=== PATIENT | male | born 1950 | race Caucasian/White ===

== ENCOUNTER → 2016-10-28 | Outpatient (CLI) | payer BC ==
[~2016-10-28] MED LIST: CHOL100010 PO; LEVO25TA5 PO; MULT-506 PO; OMEG10007 PO; PANT40TA PO; VITAMIN E PO
--- NOTE | 2016-10-28 12:50 | DIAGNOSTIC IMAGING REPORT ---
Left CALF ULTRASOUND CLINICAL HISTORY: Left CALF PAIN COMPARISON STUDY: None. FINDINGS: There are patchy echogenic areas within the muscles of the left calf. In addition, within the left calf there are are 2 adjacent round hypoechoic foci which appear to be intramuscular. These measure total size of 2.1 x 0.7 cm. These do not demonstrate color flow. IMPRESSION: Patchy echogenic areas within the muscles of the left calf with 2 adjacent round hypoechoic intramuscular foci which measure 2.1 x 0.7 cm. These findings favor intramuscular injury with a small intramuscular hematoma. However, an infectious process or small abscess also have a similar appearance. Follow-up ultrasound is recommended to ensure resolution of these findings. Electronically signed by: Fernando Hoff M.D. 10/28/2016 12:48 PM
== END | disposition home or self-care (01) ==
LOC: C.ULTR 12:13
PROVIDERS: ATTEND Internal Medicine Geriatric Medicine
DX: M79.669 Pain in unspecified lower leg (principal); R93.7 Abnormal findings on diagnostic imaging of other parts of musculoskeletal system

== ENCOUNTER → 2017-05-03 | Day surgery (SDC) | payer OTHER ==
[2017-04-23 12:17] VITALS: Ht 177.8 cm; Wt 72.7 kg
[~2017-05-03] VITALS: Ht 177.8 cm; Wt 72.7 kg
[~2017-05-03] MED LIST changes: +LIDOCAINE HCL 2% 2 ML VIAL (20MG/ML) ONE; +PROPOFOL IV EMULSION 10 MG/ML 20 ML VIAL IV ONE; +SODIUM CHLORIDE 0.9% 500ML 500 ML IV ONE; -VITAMIN E PO
--- NOTE | 2017-05-03 09:39 | Endo History and Physical ---
History & Physical Date of Service: May 03, 2017. Chief Complaint: screening Referring Physician: Dr. Wiliam Vuong History of Present Illness 67 yo CM who presents for screening colonoscopy. Past Medical History Arthritis, Male Genitourinary Prob. Past Surgical History Hx Cardiac Surgery: No Hx Internal Defibrillator: No Hx Pacemaker: No Hx Abdominal Surgery: No Hx Post-Op Nausea and Vomiting: No Hx Cancer Surgery: No Hx Thoracic Surgery: No Hx Orthopedic: Yes (LAMINECTOMY L4-L5 AND THEN HAD REVISION MICROSURGERY) Hx Urinary Tract Surgery: Yes (CYSTOSCOPY WITH TURP) Family History None Social History Smoking Status: Never Smoker Hx Substance Use: No Hx Alcohol Use: Yes (RARELY) Allergies Coded Allergies: No Known Allergies (Verified , 04/23/17) Current Medications Reported Home Medications Medications Dose Route/Sig Max Daily Dose Days Date Category Protonix (Pantoprazole Sodium) 40 Mg Tab 40 Mg PO QAM 04/23/17 Reported Vitamin D (Cholecalciferol) 1,000 Inter.unit Tab 1,000 Inter.unit PO QPM 07/09/16 Reported [place]-3 (Fish Oil) 1 Ea Cap 1 Cap PO QAM 07/09/16 Reported Multivitamin (Multivitamins) Tab 0.5 Tab PO BID 07/09/16 Reported Levothyroxine Sodium 25 Mcg Tab 1 Tab PO AFTERNOON 03/02/16 Reported Vital Signs Weight (Kilograms): 72.73 Height (Feet): 5 Height (Inches): 10. Date Time Temp Pulse Resp B/P (MAP) Pulse Ox O2 Delivery O2 Flow Rate FiO2 05/03/17 09:09 36.4 54 16 160/97 (118) 99 Room Air Physical Exam General Appearance: WD/WN, no apparent distress Respiratory/Chest: Auscultation: breath sounds normal Cardiovascular: Heart Auscultation: RRR Abdomen: Bowel Sounds: normal Inspection & Palpation: soft, non-distended, no tenderness, guarding & rebound Assessment and Plan Assessment: 67 yo CM who presents for screening colonoscopy. Plan: Proceed with colonoscopy.
--- NOTE | 2017-05-03 10:10 | GI REPORT ---
Procedure Date: 05/03/2017 9:29 AM Procedure: Colonoscopy Indications: Screening for colorectal malignant neoplasm Medicines: Monitored Anesthesia Care Complications: No immediate complications. Estimated Blood Loss: Estimated blood loss: none. Procedure: Pre-Anesthesia Assessment: - Prior to the procedure, a History and Physical was performed, and patient medications and allergies were reviewed. The patient's tolerance of previous anesthesia was also reviewed. The risks and benefits of the procedure and the sedation options and risks were discussed with the patient. All questions were answered, and informed consent was obtained. Prior Anticoagulants: The patient has taken no previous anticoagulant or antiplatelet agents. ASA Grade Assessment: II - A patient with mild systemic disease. After reviewing the risks and benefits, the patient was deemed in satisfactory condition to undergo the procedure. After I obtained informed consent, the scope was passed under direct vision. Throughout the procedure, the patient's blood pressure, pulse, and oxygen saturations were monitored continuously. The Scope was introduced through the anus and advanced to the terminal ileum. The colonoscopy was performed without difficulty. The patient tolerated the procedure well. The quality of the bowel preparation was good. The terminal ileum, ileocecal valve, appendiceal orifice, and rectum were photographed. Findings: Non-bleeding internal hemorrhoids were found during retroflexion. The hemorrhoids were small. Impression: - Non-bleeding internal hemorrhoids. - No specimens collected. Recommendation: - Resume previous diet. - Continue present medications. - Repeat colonoscopy in 10 years for surveillance. - Return to primary care physician as previously scheduled. Good Arvizu DO 05/03/2017 10:10:30 AM This report has been signed electronically. Note Initiated On: 05/03/2017 9:29 AM I attest to the content of the Intraoperative Record and orders documented therein, exceptions below
--- NOTE | 2017-05-03 10:16 | Discharge Instructions ---
Endoscopy Patient Instructions Date / Procedure(s) Performed May 03, 2017. Colonoscopy Allergy Information Coded Allergies: No Known Allergies (Verified , 04/23/17) Discharge Date / Findings May 03, 2017. Internal hemorrhoids Medication Instructions OK to resume all medications today as prescribed Reported Home Medications Medications Dose Route/Sig Max Daily Dose Days Date Category Protonix (Pantoprazole Sodium) 40 Mg Tab 40 Mg PO QAM 04/23/17 Reported Vitamin D (Cholecalciferol) 1,000 Inter.unit Tab 1,000 Inter.unit PO QPM 07/09/16 Reported [place]-3 (Fish Oil) 1 Ea Cap 1 Cap PO QAM 07/09/16 Reported Multivitamin (Multivitamins) Tab 0.5 Tab PO BID 07/09/16 Reported Levothyroxine Sodium 25 Mcg Tab 1 Tab PO AFTERNOON 03/02/16 Reported Provider Instructions Activity Restrictions - No exercising or heavy lifting for 24 hours. - Do not drink alcohol the day of the procedure. - Do not drive a car or operate machinery until the day after the procedure. - Do not make any important decisions or sign important papers in 24 hours after the procedure. Following Day: - Return to full activity which may include returning to work/school. Diet Start your diet with liquids and light foods (jello, soup, juice, toast). Then eat your usual diet if not nauseated. Treatment For Common After Affects For mild abdominal pain, bloating, or excessive gas: - Rest - Eat lightly - Lie on right side Follow-Up Information Follow-up with Dr. Wiliam Vuong as scheduled Anesthesia Information What You Should Know You have had a procedure that required some medicine to reduce anxiety and discomfort. This treatment is called moderate sedation. After receiving the treatment, you may be sleepy, but you will be able to breathe on your own. The effects of the treatment may last for several hours. Follow these instructions along with Activity/Diet recommendations noted above: * Do NOT do anything where dizziness or clumsiness would be dangerous. * Rest quietly at home today, then you can be up and about tomorrow. * Have a responsible person stay with you the rest of today. * You may have had an I.V. today. If so, you may take the dressing off later today. Recommendations Call your doctor if: * Trouble breathing * Continuous vomiting for more than 24 hours * Temperature above 101 degrees * Severe abdominal pain or bloating * Pain not relieved by pain medicine ordered * There is increased drainage or redness from any incision * A large amount of rectal bleeding greater than 2-3 tablespoons. (If you had a polyp/s removed or have hemorrhoids, a small amount of blood - from the rectum is to be expected.) * You have any unanswered questions or concerns. IN THE EVENT OF A SERIOUS EMERGENCY, GO TO THE NEAREST EMERGENCY ROOM Your discharge instructions were prepared by provider Good Arvizu. Patient Instructions Signature Page Garcia Leonardo Patient (or Guardian) Signature/Date: I have read and understand the instructions given to me by my caregivers. Caregiver/RN/Doctor Signature/Date: The above-named patient and/or guardian has received patient instructions on this date. + Original Patient Signature Page (only) stays with chart. Please make copy for patient.
--- NOTE | 2017-05-03 10:34 | Anesthesiology Progress Note ---
Anesthesia Post Op Note Date & Time May 03, 2017 at 10:34 Vital Signs Pain Intensity: 0 Vital Signs Past 12 Hours Date Time Temp Pulse Resp B/P (MAP) Pulse Ox O2 Delivery O2 Flow Rate FiO2 05/03/17 10:21 56 20 120/80 (93) 96 Room Air 05/03/17 10:06 52 20 105/71 (82) 98 Room Air 05/03/17 09:09 36.4 54 16 160/97 (118) 99 Room Air Notes Mental Status: alert / awake / arousable, participated in evaluation Pt Amnestic to Procedure: Yes Nausea / Vomiting: adequately controlled Pain: adequately controlled Airway Patency, RR, SpO2: stable & adequate BP & HR: stable & adequate Hydration State: stable & adequate Anesthetic Complications: no major complications apparent
[2017-05-03 10:36] VITALS: BP 138/89; PULSE 60; O2SAT 99
== END | disposition home or self-care (01) ==
LOC: C.GI 08:35
PROVIDERS: ATTEND Internal Medicine
DX: Z12.11 Encounter for screening for malignant neoplasm of colon (principal); K64.8 Other hemorrhoids; M19.90 Unspecified osteoarthritis, unspecified site

== ENCOUNTER → 2017-09-09 | Outpatient (CLI) | payer OTHER ==
[~2017-09-09] MED LIST changes: -LIDOCAINE HCL 2% 2 ML VIAL (20MG/ML) ONE; -PROPOFOL IV EMULSION 10 MG/ML 20 ML VIAL IV ONE; -SODIUM CHLORIDE 0.9% 500ML 500 ML IV ONE
[2017-09-09 10:56] LABS: BASO % 1.2 %; BASO ABS # 0.06 K/uL (0-0.2); COMPLETE YES; EOS % 9.2 %; HEMATOCRIT 47.3 % (42-52); IG% 0.2 %; LYMPH % 24.5 %; LYMPH ABS # 1.25 K/uL (1.2-3.4); MEAN CELL VOLUME 93.8 fL (80-100); MEAN CORPUSCULAR HEMOGLOBIN 31.7 pg (25-34); MEAN CORPUSCULAR HGB CONC 33.8 g/dl (32-36); MEAN PLATELET VOLUME 10.2 fL (7.4-10.4); MONO % 10.6 %; NEUT % 54.3 %; PLATELET COUNT 219 K/uL (130-400); RED BLOOD COUNT 5.04 M/uL (4.7-6.1)
[2017-09-09 11:05] LABS: ALT/SGPT 42 U/L (12-78); BLOOD UREA NITROGEN 11 mg/dl (7-18); BUN/CREATININE RATIO 10.9 (10-20); CALCIUM 8.8 mg/dl (8.5-10.1); CARBON DIOXIDE 31 mmol/L (21-32); CHLORIDE 102 mmol/L (98-107); CREATININE 1.03 mg/dl (0.60-1.40); GLUCOSE 91 mg/dl (70-99); SODIUM 138 mmol/L (136-145)
[2017-09-09 11:12] LABS: ALB/GLOB RATIO 0.8 (0.9-2); ALKALINE PHOSPHATASE 63 U/L (45-117); AST/SGOT 30 U/L (15-37); CHOLESTEROL 186 mg/dl (0-200); CHOLESTEROL/HDL RATIO 3.4; HDL CHOLESTEROL 55 mg/dl; LDL CHOLESTEROL CALCULATED 111 mg/dl; PROSTATE SPECIFIC ANTIGEN 0.846 ng/ml (0.000-4.000); TRIGLYCERIDES 98 mg/dl (0-150); VERY LOW DENSITY LIPOPROT CALC 20 mg/dl
== END | disposition home or self-care (01) ==
LOC: C.LABBC 07:29
PROVIDERS: ATTEND Internal Medicine
DX: N40.0 Benign prostatic hyperplasia without lower urinary tract symptoms (principal); E03.9 Hypothyroidism, unspecified; D50.0 Iron deficiency anemia secondary to blood loss (chronic); Z11.59 Encounter for screening for other viral diseases; K22.70 Barrett's esophagus without dysplasia; K44.9 Diaphragmatic hernia without obstruction or gangrene

== ENCOUNTER → 2017-10-07 | Outpatient (CLI) | payer OTHER ==
[~2017-10-07] MED LIST changes: +GADAVIST IV PRN
--- NOTE | 2017-10-07 09:29 | DIAGNOSTIC IMAGING REPORT ---
BRAIN COMBO FOR IAC CLINICAL HISTORY: LEFT SNHO *W/IAC'S* mental status change. Hearing loss. TECHNIQUE: MRI multi axial acquisition. Pre and post gadolinium enhanced scans. COMPARISON STUDY: None FINDINGS: Diffusion images are negative for an acute ischemic event. Several small foci of increased signal within the periventricular deep white matter regions consistent with a component of chronic small vessel change of aging. Ventricular system is midline. Internal auditory canals are symmetric. Postcontrast images are considered negative for an enhancing lesion. Sella and parasellar regions are unremarkable. Internal auditory canals are symmetric. There is no abnormal postcontrast enhancement of the 7th or 8th nerves. IMPRESSION: Normal study for age. note is made of mild scattered mucosal thickening of the sinuses The above report was generated using voice recognition software. It may contain grammatical, syntax or spelling errors. Electronically signed by: Glynn Magana M.D. 10/07/2017 9:28 AM Dictated Date/Time: 10/07/2017 9:25 AM
== END | disposition home or self-care (01) ==
LOC: C.MRIBC 07:47
PROVIDERS: ATTEND Physician Assistant
DX: H90.42 Sensorineural hearing loss, unilateral, left ear, with unrestricted hearing on the contralateral side (principal)

== ENCOUNTER → 2018-03-10 | Outpatient (CLI) | payer OTHER ==
[~2018-03-10] MED LIST changes: -GADAVIST IV PRN
--- NOTE | 2018-03-10 18:40 | DIAGNOSTIC IMAGING REPORT ---
LEFT KNEE 3 VIEWS CLINICAL HISTORY: Left knee strain. FINDINGS: AP, lateral, and sunrise views of the left knee are obtained. No prior studies are available for comparison at the time of dictation. The skeletal structures are well mineralized. No fracture is identified. There is mild to moderate tricompartmental degenerative joint space narrowing, greatest at the patellofemoral articulation. Chondrocalcinosis is noted in the medial and lateral compartments. A small joint effusion is identified. The overlying soft tissues are within normal limits. IMPRESSION: 1. Small joint effusion with no acute bony abnormality identified. 2. Degenerative change and chondrocalcinosis as above. Electronically signed by: Prince Mar M.D. 03/10/2018 6:38 PM Dictated Date/Time: 03/10/2018 6:37 PM
== END | disposition home or self-care (01) ==
LOC: C.RAD1850 16:42
PROVIDERS: ATTEND Internal Medicine
DX: S86.912A Strain of unspecified muscle(s) and tendon(s) at lower leg level, left leg, initial encounter (principal); X58.XXXA Exposure to other specified factors, initial encounter; M25.462 Effusion, left knee